=== PATIENT | male | born 1980 | race Caucasian/White ===

== ENCOUNTER → 2016-12-12 12:20 | Outpatient (CLI) | payer OTHER | END | disposition home or self-care (01) | LOC: D.RAD 12:20 | DX: Z02.71 Encounter for disability determination (principal) ==

== ENCOUNTER 2017-01-23 08:10 | Day surgery (SDC) | payer MEDICAID ==
[2017-01-20 11:46] LABS: HEMATOCRIT 50.3 % (42.0-54.0); HEMOGLOBIN 17.1 g/dL (13.5-17.5); MCH 34.2 pg (26.0-34.0); MCV 100.6 fL (80.0-100.0); MEAN PLATELET VOLUME 11.4 fL (7.4-10.4); RDW 12.8 % (11.5-14.5); WBC 11.7 10x3/uL (4.8-10.8)
[2017-01-20 12:03] LABS: CALC OSMOLALITY 276 mosm/kg (275-300); CALCIUM 8.6 mg/dL (8.5-10.1); CARBON DIOXIDE 29.3 mmol/L (21.0-32.0); CHLORIDE - SERUM 103 mmol/L (98-107); CREATININE - SERUM 0.9 mg/dL (0.6-1.3); GLUCOSE 104 mg/dL (74-106); POTASSIUM - SERUM 4.5 mmol/L (3.5-5.1); SODIUM 139 mmol/L (136-145); UREA NITROGEN 11 mg/dL (7-18); eGFR NON AFRICAN AMERICAN > 90 mL/min (90-120)
[~2017-01-23] VITALS: Ht 182.9 cm; Wt 199.6 kg
--- NOTE | ~2017-01-23 | OP ---
PATIENT NAME: FLORENCIA MORROW MEDICAL RECORD: [id number] :76 LOCATION:D.OPS ADMISSION DATE: SURGEON: ANDREW LUCERO MD DATE OF OPERATION: 01/23/2017 PREOPERATIVE DIAGNOSIS: Symptomatic hardware of the right knee, status post patellar tendon rupture. POSTOPERATIVE DIAGNOSIS: Symptomatic hardware of the right knee, status post patellar tendon rupture. PROCEDURE: Removal of symptomatic hardware of the right knee. SURGEON: Andrew Lucero MD. ANESTHESIA: General. INTRAOPERATIVE COMPLICATIONS: None. SUMMARY OF PATHOLOGIC FINDINGS: Consistent with the preoperative diagnosis, the patient had multi-fragmented wire that required extensive deep dissection for removal. All but the portion that was intraosseous was removed. OPERATIVE SUMMARY IN DETAIL: After obtaining the appropriate preoperative orthopedic surgery consent as well as anesthetic consultation, evaluation and clearance, the patient was brought to the operating room and placed on the operating table in supine position. After adequate general laryngeal mask airway was administered, tourniquet was placed about the proximal aspect of the right lower extremity, though it was not used during the case. Right lower extremity was prepped and draped in routine sterile fashion. An incision was made directly over the fluoroscopically found wire. This was taken down to the wire and as the wire was removed, small pieces had fragmented in several places. All of the 18-gauge wire was removed, except for the portion that was intraosseous. Having completed this, the wound was copiously irrigated and closed with #1 Vicryl followed by skin matthew. Sterile dressings were applied. The patient was awakened, taken to recovery room in stable condition. All final needle and sponge counts were correct. TRANSINT:[id number] Voice Confirmation ID: [id number] DOCUMENT ID: [id number] ANDREW LUCERO MD CC: [id number] DICTATION DATE: 02/06/17 1337 RESEARCH INSTRUMENTATION TECHNICIAN: 02/06/17 1643 [facility] 01/23/17 [place] [address]
[~2017-01-23 08:10] MED LIST: AMBIEN10 MG PO; CYCLOBENZAPRINE10 MG PO; LISINOPRIL-HCTZ1 T11 PO; NEURONTIN 300300 MG PO
[2017-01-23 10:29] VITALS: BP 110/90; Ht 182.9 cm; Wt 199.6 kg
[2017-01-23] MEDS ORDERED: PERCOCET 10/3251 TA1 PO (12:37)
== END 2017-01-23 16:23 | disposition home or self-care (01) ==
LOC: D.OPS 08:10 → D.PAN 09:00 → D.OPS 09:45
PROVIDERS: Anesthesiology
DX: T85.9XXA Unspecified complication of internal prosthetic device, implant and graft, initial encounter (principal); M25.561 Pain in right knee; M25.562 Pain in left knee; F17.200 Nicotine dependence, unspecified, uncomplicated; I10 Essential (primary) hypertension; G47.30 Sleep apnea, unspecified; E66.01 Morbid (severe) obesity due to excess calories; Z68.43 Body mass index [BMI] 50.0-59.9, adult; Z01.812 Encounter for preprocedural laboratory examination

== ENCOUNTER 2018-06-05 10:39 | Outpatient (CLI) | payer MEDICAID ==
[~2018-06-05] VITALS: Ht 182.9 cm; Wt 203.2 kg
[~2018-06-05 10:39] MED LIST changes: +PERCOCET 10/3251 TA1 PO
[2018-06-05 12:43] VITALS: BP 132/98; Ht 182.9 cm; Wt 203.2 kg
== END 2018-06-05 14:45 | disposition home or self-care (01) ==
LOC: D.OPS 10:39
DX: E83.110 Hereditary hemochromatosis (principal); Z01.812 Encounter for preprocedural laboratory examination

== ENCOUNTER → 2018-08-21 09:25 | Outpatient (CLI) | payer MEDICAID ==
[2018-06-05 12:43] VITALS: BMI 60.8
== END | disposition home or self-care (01) ==
LOC: D.MRI 09:25
DX: M75.102 Unspecified rotator cuff tear or rupture of left shoulder, not specified as traumatic (principal)